=== PATIENT | female | born 1970 | race Caucasian/White ===

== ENCOUNTER → 2019-12-10 13:34 | Outpatient (CLI) | payer OTHER, SELFPAY | PROVIDERS: PCP Internal Medicine Adolescent Medicine; Visit Provider Internal Medicine Adolescent Medicine | DX: Z03.818 Encounter for observation for suspected exposure to other biological agents ruled out (principal); R05 Cough | CPT/HCPCS: U0003 ==

== ENCOUNTER → 2019-12-15 10:04 | Outpatient (CLI) | payer OTHER, SELFPAY ==
[2019-12-16 07:35] LABS: Covid-19 Nasal PCR Sendout Lex NOT DETECTED
== END ==
PROVIDERS: Visit Provider Internal Medicine Adolescent Medicine
DX: Z03.818 Encounter for observation for suspected exposure to other biological agents ruled out (principal)
CPT/HCPCS: U0004

== ENCOUNTER → 2020-04-12 10:11 | Outpatient (CLI) | payer OTHER, SELFPAY ==
--- NOTE | 2020-04-12 10:23 | XR_ITS ---
PROCEDURE: XR CHEST PORTABLE CLINICAL HISTORY: COVID OUTPATIENT COMPARISON: CT AGCHEST CT angio chest from 03/12/2018 CR CXR2V XR chest 2V from 03/12/2018 FINDINGS: Mild cardiomegaly. No evidence of failure. The lungs are clear without infiltrates, suspicious nodules, or pleural effusions. No acute bony abnormalities. IMPRESSION: Mild cardiomegaly otherwise negative Dictated by: Haris Berman MD 04/12/2020 11:32 Haris Berman MD in [place] 04/12/2020 11:32
== END ==
PROVIDERS: PCP Internal Medicine Adolescent Medicine; Referring Provider Internal Medicine Adolescent Medicine; Visit Provider Internal Medicine Adolescent Medicine
DX: Z20.822 Contact with and (suspected) exposure to COVID-19 (principal); R06.02 Shortness of breath
CPT/HCPCS: 71045; U0003

== ENCOUNTER 2022-02-28 08:19 | Outpatient (CLI) | payer OTHER, SELFPAY ==
[2022-02-28 08:23] VITALS: BP 138/83; PULSE 84; RESP 18; TEMP 36.2; O2SAT 100; BMI 38.0
[2022-02-28 08:44] LABS: Chloride 104 mmol/L (98-107); Potassium 3.8 mmoL/L (3.5-5.1); Sodium 137 mmol/L (136-145)
[2022-02-28 08:46] LABS: Blood Urea Nitrogen 13 mg/dl (7-17); Creatinine Clearance Estimated 125 mL/min (50-200); Estimated Glomerular Filt Rate 75 ml/min (>60); GFR (African American) 91 ML/MIN (>60)
[2022-02-28 08:47] LABS: Anion Gap 15.8 mEq/L (5-15); Calcium 9.6 mg/dl (8.4-10.2); Carbon Dioxide 21 mmol/L (22.0-30.0); Glucose 123 mg/dl (74-100); Magnesium 1.6 mg/dl (1.6-2.3)
[2022-02-28 08:48] LABS: Basophils # 0.1 K/mm3 (0-0.2); Basophils % 1.2 % (0.1-2.0); Eosinophils # 0.2 K/mm3 (0.0-0.4); Eosinophils % 3.3 % (0.1-12.0); Hematocrit 39.3 % (37.0-47.0); Hemoglobin 13.1 g/dL (12.2-16.2); Lymphocytes % 29.5 % (10-50); Mean Corpuscular HGB Conc 33.2 g/dL (31.8-35.4); Mean Corpuscular Volume 90.4 fl (81-99); Mean Platelet Volume 7.7 fl (7.4-10.4); Monocytes # 0.3 K/mm3 (0.1-1.0); Monocytes % 4.4 % (1.7-9.3); Neutrophils # 4.1 K/mm3 (1.8-7.8); Neutrophils % 61.5 % (37.0-80.0); Platelet Count 302 K/mm3 (142-424); Red Blood Count 4.35 M/mm3 (4.20-5.40); Red Cell Distribution Width 13.8 % (11.5-17.5); White Blood Count 6.7 K/mm3 (4.8-10.8)
[2022-02-28 10:05] VITALS: BP 149/74; PULSE 82; RESP 18; O2SAT 99
== END 2022-02-28 10:05 | disposition home or self-care (01) ==
LOC: INF 08:20
PROVIDERS: PCP Family Medicine; Visit Provider Internal Medicine Adolescent Medicine
DX: E86.0 Dehydration (principal)
CPT/HCPCS: 80048; 83735; 85025; 96360; 96375

== ENCOUNTER 2024-04-08 15:41 | Outpatient (CLI) | payer OTHER, SELFPAY ==
--- NOTE | 2024-04-08 15:45 | XR_ITS ---
FINAL REPORT CLINICAL HISTORY: Foot Pain COMPARISON: None FINDINGS: LEFT FOOT Three views demonstrate no acute fracture or dislocation. There is mild lateral subluxation of the first proximal phalange relative to the distal first metatarsal. There is a moderate hallux valgus deformity. No acute soft tissue abnormality is seen. IMPRESSION: Degenerative changes without acute bony abnormality. Reviewed, Interpreted and Dictated by Geoffrey Browne MD Transcribed by Aggie Howard Authenticated and [facility][1]
--- NOTE | 2024-04-08 15:45 | XR_ITS ---
FINAL REPORT CLINICAL HISTORY: Foot Pain COMPARISON: None FINDINGS: RIGHT FOOT Three views demonstrate no acute fracture or dislocation. There is moderately advanced joint space narrowing at the first metatarsophalangeal joint. There is mild subchondral sclerosis. Osteophyte formation is noted. There is a small plantar spur. No acute soft tissue abnormality is seen. IMPRESSION: Degenerative changes without acute bony abnormality. Reviewed, Interpreted and Dictated by Geoffrey Browne MD Transcribed by Aggie Howard Authenticated and [facility]
== END 2024-04-08 23:59 | disposition home or self-care (01) ==
LOC: RAD 15:43
PROVIDERS: PCP Family Medicine; Visit Provider Podiatrist
DX: M79.671 Pain in right foot (principal); M79.672 Pain in left foot
CPT/HCPCS: 73630

== ENCOUNTER 2024-04-20 12:51 | Outpatient (CLI) | payer OTHER, SELFPAY ==
--- NOTE | 2024-04-20 12:54 | US_ITS ---
FINAL REPORT CLINICAL HISTORY: skin changes, decreased sensation FINDINGS: BILATERAL ANKLE BRACHIAL INDICES Pressure indices are as follows are: RIGHT LOWER EXTREMITY Ankle brachial pressure index: 1.0 Toe brachial pressure index: 0.56 COMMENTS: Normal LEFT LOWER EXTREMITY Ankle brachial pressure index: 1.0 Toe brachial pressure index: 0.62 COMMENTS: Normal IMPRESSION: No evidence of significant obstructive peripheral vascular disease of the lower extremities. Reviewed, Interpreted and Dictated by Leila Christianson MD Transcribed by Mery Gonzalez Authenticated and [facility]
== END 2024-04-20 23:59 | disposition home or self-care (01) ==
LOC: RT 12:52
PROVIDERS: PCP Family Medicine; Visit Provider Podiatrist
DX: E11.621 Type 2 diabetes mellitus with foot ulcer (principal); L97.529 Non-pressure chronic ulcer of other part of left foot with unspecified severity; M19.071 Primary osteoarthritis, right ankle and foot; M19.072 Primary osteoarthritis, left ankle and foot; B95.61 Methicillin susceptible Staphylococcus aureus infection as the cause of diseases classified elsewhere
CPT/HCPCS: 87070; 87077; 87186; 87205; 93923

== ENCOUNTER 2024-04-28 16:23 | Outpatient (CLI) | payer OTHER, SELFPAY ==
--- NOTE | 2024-04-28 16:46 | XR_ITS ---
PROCEDURE INFORMATION: Exam: XR Left Foot Complete; Alignment Exam date and time: 04/28/2024 4:46 PM Age: 53 years old Clinical indication: Pain; Foot; Left; Additional info: Foot pain TECHNIQUE: Imaging protocol: Radiologic exam of the left foot. Views: 3 or more views. COMPARISON: CR XR FOOT WT BEARING LT 3V 04/08/2024 3:50 PM FINDINGS: Bones/joints: Hallux valgus and bunion and mild degenerative changes of the 1st MTP joint redemonstrated. Small heel spurs. Pes planus again noted. Soft tissues: Normal. IMPRESSION: 1. Stable left foot with chronic changes. 2. No acute abnormalities.
[2024-04-28 17:21] LABS: Basophils # 0.1 K/mm3 (0-0.2); Basophils % 0.7 % (0.1-2.0); Eosinophils # 0.1 K/mm3 (0.0-0.4); Eosinophils % 1.9 % (0.1-12.0); Hemoglobin 12.2 g/dL (12.2-16.2); Lymphocytes # 1.8 K/mm3 (0.7-4.5); Lymphocytes % 25.3 % (10-50); Mean Corpuscular HGB Conc 32.1 g/dL (31.8-35.4); Mean Corpuscular Hemoglobin 30.4 pg (27.0-31.2); Mean Corpuscular Volume 94.8 fl (81-99); Mean Platelet Volume 9.8 fl (7.4-10.4); Monocytes # 0.6 K/mm3 (0.1-1.0); Monocytes % 8.8 % (1.7-9.3); Neutrophils # 4.6 K/mm3 (1.8-7.8); Neutrophils % 62.9 % (37.0-80.0); Platelet Count 239 K/mm3 (142-424); Red Blood Count 4.01 M/mm3 (4.20-5.40); Red Cell Distribution Width 14.2 % (11.5-17.5); White Blood Count 7.3 K/mm3 (4.8-10.8)
[2024-04-28 17:56] LABS: Alanine Aminotransferase 31 U/L (12-78); Albumin Level 4.4 g/dl (3.5-5.0); Albumin/Globulin Ratio 1.9 (1.1-1.8); Alkaline Phosphatase 99 U/L (38-126); Anion Gap 8.1 mEq/L (5-15); Aspartate Amino Transferase 48 U/L (14-36); Bilirubin,Total 0.4 mg/dl (0.2-1.3); Blood Urea Nitrogen 14 mg/dl (7-17); Calcium 9.6 mg/dl (8.4-10.2); Carbon Dioxide 29 mmol/L (22.0-30.0); Chloride 105 mmol/L (98-107); Estimated Glomerular Filt Rate 104 ml/min (>60); GFR (African American) 126 ML/MIN (>60); Globulin 2.3 g/dL (1.3-3.2); Glucose 97 mg/dl (74-100); Potassium 4.1 mmoL/L (3.5-5.1); Sodium 138 mmol/L (136-145); Total Protein,Serum 6.7 g/dl (6.3-8.2)
[2024-04-28 18:00] LABS: C-Reactive Protein 8.7 mg/L (0-4)
[2024-04-28 18:09] LABS: Hemoglobin A1C 5.9 % (4.0-6.0)
[2024-04-28 18:44] LABS: Erythrocyte Sedimentation Rate 54 mm/hr (0-30)
== END 2024-04-28 23:59 | disposition home or self-care (01) ==
LOC: LAB 16:24
PROVIDERS: PCP Family Medicine; Visit Provider Podiatrist
DX: M79.672 Pain in left foot (principal); L03.032 Cellulitis of left toe; E11.621 Type 2 diabetes mellitus with foot ulcer; L97.529 Non-pressure chronic ulcer of other part of left foot with unspecified severity
CPT/HCPCS: 36415; 73630; 80053; 83036; 85025; 85651; 86140

== ENCOUNTER 2024-05-08 10:08 | Outpatient (CLI) | payer OTHER, SELFPAY ==
--- NOTE | 2024-05-08 10:12 | CT_ITS ---
FINAL REPORT TECHNIQUE: Thin section axial CT images with coronal and sagittal reformats were performed. This study was performed with techniques to keep radiation doses as low as reasonably achievable (ALARA). Individualized dose reduction techniques using automated exposure control or adjustment of mA and/or kV according to the patient''s size were employed. CLINICAL HISTORY: Access for 2nd toe Osteomyelitis FINDINGS: There is no evidence of bone destruction or periosteal reaction to indicate osteomyelitis. There is no gas in the soft tissues. There is a fluid collection along the plantar surface of the second metatarsal head measuring 10 mm, small abscess is not excluded. There is a fluid collection along the plantar posterior calcaneus measuring 31 x 15 x 20 mm. This fluid collection is encapsulated which could be related to abscess or hematoma. No fracture is identified. There is moderate hallux valgus deformity. IMPRESSION: No obvious osteomyelitis although MR would be a more sensitive study if patient is a candidate for such. Two fluid collections in the plantar subcutaneous tissues, larger posteriorly which could represent abscesses or hematoma. Reviewed, Interpreted and Dictated by Rex rAvizu MD Transcribed by Anjana Dozier Authenticated and [facility]
--- NOTE | 2024-05-08 10:12 | CT_ITS ---
FINAL REPORT CLINICAL HISTORY: bnl TBI COMPARISON: None FINDINGS: CT ABDOMEN, CT PELVIS, CTA ABDOMEN, CTA PELVIS AND CTA LOWER EXTREMITY RUNOFF COMPARISON: TECHNIQUE: Thin section axial CT with IV contrast supplemented with 3D MIP reconstruction under CT Angiogram protocol This study was performed with techniques to keep radiation doses as low as reasonably achievable, (ALARA). Individualized dose reduction techniques using automated exposure control or adjustment of mA and/or kV according to the patient''s size were employed. FINDINGS: CT ANGIOGRAM ABDOMEN AND PELVIS: Abdominal aorta shows no significant stenosis, aneurysm or dissection. Central mesenteric and renal arteries are widely patent. Iliac vessels show no significant stenosis, dissection or aneurysm. CTA RIGHT LOWER EXTREMITY: The femoral and popliteal vessels showed no significant stenosis or occlusion. There is three-vessel runoff of the calf. CTA LEFT LOWER EXTREMITY: The femoral and popliteal vessels show no significant stenosis or occlusion. There is two-vessel runoff of the calf. The anterior tibial artery is occluded proximally, while the peroneal and posterior tibial arteries are patent. Abdomen: There is a nonobstructing right renal stone measuring 6 mm in diameter. Solid abdominal organs are otherwise grossly unremarkable. No bowel obstruction is seen. There is no free fluid or free air. Pelvis: Pelvic bowel loops are unremarkable. No mass or fluid collection is seen. The uterus and ovaries are normal in appearance. The appendix is not visualized. IMPRESSION: Mild infrapopliteal peripheral vascular disease in the left lower extremity, with proximal occlusion of the anterior tibial artery. Unremarkable right lower extremity without evidence of significant stenosis or obstruction. No evidence of aortoiliac inflow disease. This study was performed using automated techniques to achieve radiation exposure as low as reasonably achievable Reviewed, Interpreted and Dictated by Rex Arvizu MD Transcribed by Daiana Ballesteros Authenticated and [facility]
[2024-05-08] MEDS: 0.9 % SODIUM CHLORIDE 50 ML VIAL 100 ML IV (10:43)
[2024-05-08] MEDS: IOPAMIDOL-370 (76%);100ML BOTTLE 120 ML IV (10:44)
[2024-05-08] MEDS: SODIUM CHLORIDE 0.9% 10ML SYR (RAD ONLY) 10 ML IV (10:44)
== END 2024-05-08 23:59 | disposition home or self-care (01) ==
LOC: RAD 10:09
PROVIDERS: PCP Family Medicine; Visit Provider Podiatrist
DX: E11.621 Type 2 diabetes mellitus with foot ulcer (principal); L97.529 Non-pressure chronic ulcer of other part of left foot with unspecified severity; L03.032 Cellulitis of left toe; E11.51 Type 2 diabetes mellitus with diabetic peripheral angiopathy without gangrene; I10 Essential (primary) hypertension
CPT/HCPCS: 73700; 75635; Q9967

== ENCOUNTER 2024-05-25 08:29 | Day surgery (SDC) | payer OTHER, SELFPAY ==
[2024-05-25] VITALS (12 sets, daily range): BP systolic 87–169; BP diastolic 47–107; PULSE 65–80; RESP 10–20; O2SAT 93–100; BMI 37.5
--- NOTE | 2024-05-25 07:15 | IR_ITS ---
APPROVED REPORT Patient Location: Outpatient PROCEDURES Catheter placement in the left external iliac artery Left external iliac artery antegrade angiogram with unilateral runoff to the left foot Catheter placed in the distal abdominal aorta Distal abdominal aortogram INDICATION Gilpin claudication class IV-V, Poorly healing lower extremity ulcer Informed consent was obtained prior to the procedure. COMPLICATIONS NONE Estimated Blood Loss: LESS THAN 10 ML TECHNIQUE 1% lidocaine used to anesthetize the right anterior aspect of the right wrist. The right radial artery was accessed via the central technique and an arterial cocktail using 5000U heparin, 2.5 mg verapamil, 1mg lidocaine and 800mcg nitroglycerin into the right radial sheath intra-arterially. A PV multi curve catheter was then placed into the left common iliac artery via the right radial sheath and iliofemoral angiography was performed with unilateral runoff to the foot. Excellent angiographic results were obtained. At the end of the procedure the apparatus was removed the sheath was removed good hemostasis was achieved using TR banding patient was transferred to the postop holding area in stable condition. ANGIOGRAPHIC RESULTS Left common internal and external arteries widely patent Left common femoral artery is normal Left profunda femoris artery and left superficial femoral arteries are widely patent The anterior posterior tibialis artery are widely patent in the proximal segment as is the peroneal artery. There is excellent two-vessel runoff from the posterior tibialis artery and peroneal artery into the left foot with slow flow down the anterior tibialis artery IMPRESSION Essentially normal three-vessel runoff below the knee as described above with no evidence of macrovascular atherosclerotic disease PLAN 1. Medical management 2. Evaluation for venous insufficiency and/or other etiologies for the ulcer Electronically signed by : Pranay Renee MD 05/25/2024 12:39:45
[2024-05-25 08:50] LABS: Basophils # 0.1 K/mm3 (0-0.2); Eosinophils # 0.2 K/mm3 (0.0-0.4); Eosinophils % 2.8 % (0.1-12.0); Hematocrit 43.7 % (37.0-47.0); Lymphocytes # 2.6 K/mm3 (0.7-4.5); Lymphocytes % 43.8 % (10-50); Mean Corpuscular Hemoglobin 30.4 pg (27.0-31.2); Mean Platelet Volume 9.8 fl (7.4-10.4); Monocytes # 0.6 K/mm3 (0.1-1.0); Monocytes % 9.3 % (1.7-9.3); Neutrophils # 2.6 K/mm3 (1.8-7.8); Neutrophils % 42.9 % (37.0-80.0); Platelet Count 290 K/mm3 (142-424); Red Cell Distribution Width 13.4 % (11.5-17.5)
[2024-05-25 08:55] LABS: Chloride 103 mmol/L (98-107); Potassium 3.7 mmoL/L (3.5-5.1); Sodium 137 mmol/L (136-145)
[2024-05-25 08:58] LABS: Anion Gap 9.7 mEq/L (5-15); Blood Urea Nitrogen 12 mg/dl (7-17); Carbon Dioxide 28 mmol/L (22.0-30.0); Creatinine Clearance Estimated 138 mL/min (50-200); Estimated Glomerular Filt Rate 87 ml/min (>60); GFR (African American) 105 ML/MIN (>60)
[2024-05-25 08:59] LABS: Calcium 9.8 mg/dl (8.4-10.2); Glucose 136 mg/dl (74-100)
[2024-05-25] MEDS: diphenhydrAMINE 50MG/ML VIAL 50 MG IV (10:52)
[2024-05-25] MEDS: HEPARIN 1,000 UNITS/500ML NS (CATH LAB) 3000 UNIT IV (10:52)
[2024-05-25] MEDS: 0.9 % SODIUM CHLORIDE 500 ML 25 ML IV (10:55)
[2024-05-25] MEDS: LIDOCAINE 1% 10ML MDV 20 ML IJ (10:57)
[2024-05-25] MEDS: MIDAZOLAM HCL 1MG/ML 5ML VIAL 1 MG IV (10:58)
[2024-05-25] MEDS: FENTANYL 100MCG/2ML VIAL 50 MCG IV (10:58)
[2024-05-25] MEDS: NITROGLYCERIN 800MCG/8ML SYR (CATH LAB) 800 MCG IA (10:58)
[2024-05-25] MEDS: VERAPAMIL 2.5MG/ML 2ML VIAL 2.5 MG IV (10:58)
[2024-05-25] MEDS: HEPARIN 1,000 UNITS/ML 10ML VIAL (CATH LAB) 10000 UNIT IV (10:59)
--- NOTE | 2024-05-25 12:04 | SUR.PHASEII ---
PATIENT TAKEN TO ICU FOR RECOVERY, ROOM 266
[2024-05-25] MEDS: IOHEXOL-240 100ML BOTTLE 58 ML IV (15:06)
== END 2024-05-25 15:02 | disposition home or self-care (01) ==
LOC: CATHLAB 08:29
PROVIDERS: PCP Family Medicine; Visit Provider Internal Medicine
DX: E13.51 Other specified diabetes mellitus with diabetic peripheral angiopathy without gangrene (principal); E13.621 Other specified diabetes mellitus with foot ulcer; E66.9 Obesity, unspecified; L97.529 Non-pressure chronic ulcer of other part of left foot with unspecified severity; M06.9 Rheumatoid arthritis, unspecified; Z79.69 Long term (current) use of other immunomodulators and immunosuppressants; Z79.82 Long term (current) use of aspirin; Z79.85 Long-term (current) use of injectable non-insulin antidiabetic drugs; Z79.84 Long term (current) use of oral hypoglycemic drugs; Z68.37 Body mass index [BMI] 37.0-37.9, adult; Z91.040 Latex allergy status; Z83.3 Family history of diabetes mellitus; Z83.49 Family history of other endocrine, nutritional and metabolic diseases; Z82.49 Family history of ischemic heart disease and other diseases of the circulatory system
CPT/HCPCS: 36245; 36247; 36248; 75710; 80048; 85025; 99152; C1725; C1769; J1200; J1644; J3010; Q9966

== ENCOUNTER 2024-06-22 11:00 | Outpatient (RCR) | payer OTHER, SELFPAY ==
--- NOTE | 2024-06-08 16:54 | HMH.PTOPWND ---
Rehab Outpt Wound Evaluation Rehab OP Wound Evaluation Start: 06/08/24 10:50 Freq: Status: Active Protocol: Document 06/08/24 16:42 MARSHA (Rec: 06/08/24 16:53 PHORKEITH [id number]) E-signed By Lucas Snow, PT Subjective/History History History This is the initial PT wound care evaluation for Bessie Duffy, 53 yowf who presents with L foot medial 2nd toe DFU x ~ 2- 3 mos. She reports, I think I got a blister from my shoe rubbing and then it turned into a sore. She reports no c /o pain in the foot at this time. 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 She had MARTINA performed which led to vascular intervention, but no flow abnormalities were noted. She reports she was prescribed baby aspirin after this procedure. She reports PMH of RA and takes prescription medication to prevent flare-ups. Subjective Subjective Pt reports no pain, 0/10. No TTP noted. No srikanth-wound erythema noted. Wound Eval Wound Left Medial Toe - 2nd Digit Wound Type Diabetic Foot Ulcer Is This a Chronic Wound Yes Wound Length (cm) 0.6 Wound Width (cm) 0.6 Wound Depth (cm) 0.1 Wound Bed Appearance Exira Wound Margins Description Well Defined Surrounding Tissue Appearance Exira Drainage Description Serosanguineous Drainage Amount Scant Wound Topical Solution/Irrigant Saline Irrigant Primary Dressing Bandaid Comment therahoney gel Wound Debridement Method Sharps,Gauze,Mechanical Wound Debridement Amount of Tissue Minimal Removed Dressing Change Patient Tolerance Tolerated Well Suarez-Hart Wound Assessment Tool Assessment Wound size 1=Length x Width <4 sq cm Wound depth 2=Partial thickness skin loss involving epidermis &/or dermis Wound edges 2=Distinct, outline clearly visible, attached, even with wound base Wound undermining 1=None present Necrotic tissue type 1=Non visible Necrotic tissue amount 1=None visible Exudate type 3=Serosanguineous: thin, watery, pale red/pink Exudate amount 2=Scant, wound moist but no observable exudate Skin color surrounding wound 1=Exira or normal for ethnic group Peripheral tissue edema 1=No swelling or edema Peripheral tissue induration 1=None present Granulation tissue 2=Bright, beefy red;75% to 100 % of wound filled &/or tissue overgrowth Epithelialization 5= < 25% wound covered Wound assessment total score 23 Wound Problems/Impairments Impairments Problems/Impairmments Wound Care Needs,Impaired Self Care/Self Management Prognosis Rehab Potential Good Comment skilled therapy is indicated to reduce overall wound surface area and aid pt healing in order to return pt to PLOF. Clinical Impression Consistent with Diagnosis Yes Short Term Goals Number of Weeks 4 Decrease Wound Area Yes: by 25% Longterm Goals Number of Weeks 8 Decrease Wound Area Yes: by 75% Outpatient Therapy Plan of Care Treatment Plan May Include Therapeutic Exercise Including Home Yes Exercise Program Manual Therapy Techniques Yes Neuromuscular Re-education Yes Therapeutic Activities to Return to Yes Previous Functional/Work Level ADL/Self Care Education Yes Orthotics/Bracing/Splinting Yes Wound Care Yes Eval/Re-Eval Yes Frequency Times per week 1 Duration Number of Weeks 8 Addendums This patient is a candidate for social No or vocational rehab? Patient/Guardian verbally acknowledges Yes understanding of treatment program and consents to further treatment? Patient/Guardian verbally acknowledges Yes understanding of diagnosis, prognosis and goals for treatment? Eval Complexity PT Charges 91477 - High Complexity PHYSICIAN CERTIFICATION: I certify the specified therapy services for Bessie Duffy are required, authorized, and reviewed every 30 days.
== END 2024-06-22 23:59 | disposition home or self-care (01) ==
LOC: PT 11:00
PROVIDERS: PCP Family Medicine; Visit Provider Nurse Practitioner
DX: E11.621 Type 2 diabetes mellitus with foot ulcer (principal); L97.529 Non-pressure chronic ulcer of other part of left foot with unspecified severity
CPT/HCPCS: 97163; 97597

== ENCOUNTER 2024-06-30 09:21 | Outpatient (CLI) | payer OTHER, SELFPAY ==
--- NOTE | 2024-06-30 09:32 | XR_ITS ---
FINAL REPORT CLINICAL HISTORY: Diabetic Foot Ulver of Left 2nd toe FINDINGS: LEFT FOOT Three views of the left foot demonstrate no acute fracture or dislocation. The visualized joint spaces are normally aligned. There is soft tissue edema of the second digit and ulceration. There is no evidence of bony erosion. Hammertoe deformity is noted of the second digit. IMPRESSION: Soft tissue ulceration and edema of the second digit without evidence of bony erosion. Reviewed, Interpreted and Dictated by Geoffrey Browne MD Transcribed by Elvira Paula Authenticated and [facility]
[2024-06-30 09:34] LABS: Basophils # 0.1 K/mm3 (0-0.2); Basophils % 0.9 % (0.1-2.0); Eosinophils # 0.2 Kmm3 (0.0-0.4); Eosinophils % 2.9 % (0.1-12.0); Hematocrit 38.9 % (37.0-47.0); Hemoglobin 12.4 g/dL (12.2-16.2); Lymphocytes # 1.9 K/mm3 (0.7-4.5); Lymphocytes % 31.6 % (10-50); Mean Corpuscular HGB Conc 31.9 g/dL (31.8-35.4); Mean Platelet Volume 9.7 fl (7.4-10.4); Monocytes # 0.7 K/mm3 (0.1-1.0); Monocytes % 11.8 % (1.7-9.3); Neutrophils # 3.1 K/mm3 (1.8-7.8); Neutrophils % 52.6 % (37.0-80.0); Nucleated Red Blood Cells # 0 10^3/uL; Nucleated Red Blood Cells % 0 %; Platelet Count 232 K/mm3 (142-424); Red Blood Count 4.14 M/mm3 (4.20-5.40); Red Cell Distribution Width 13.2 % (11.5-17.5); Red Cell Distribution Width-SD 45.3 fL; White Blood Count 5.9 K/mm3 (4.8-10.8)
[2024-06-30 09:57] LABS: Erythrocyte Sedimentation Rate 18 mm/hr (0-30)
[2024-06-30 10:50] LABS: Alanine Aminotransferase 32 U/L (12-78); Albumin Level 4.2 g/dl (3.5-5.0); Albumin/Globulin Ratio 1.6 (1.1-1.8); Alkaline Phosphatase 65 U/L (38-126); Anion Gap 8.2 mEq/L (5-15); Aspartate Amino Transferase 45 U/L (14-36); Bilirubin,Total 0.4 mg/dl (0.2-1.3); Blood Urea Nitrogen 12 mg/dl (7-17); Calcium 9.9 mg/dl (8.4-10.2); Carbon Dioxide 29 mmol/L (22.0-30.0); Chloride 108 mmol/L (98-107); Estimated Glomerular Filt Rate 104 ml/min (>60); GFR (African American) 126 ML/MIN (>60); Globulin 2.7 g/dL (1.3-3.2); Glucose 108 mg/dl (74-100); Potassium 4.2 mmoL/L (3.5-5.1); Sodium 141 mmol/L (136-145); Total Protein,Serum 6.9 g/dl (6.3-8.2)
[2024-06-30 10:56] LABS: C-Reactive Protein 1.1 mg/L (0-4)
== END 2024-06-30 23:59 | disposition home or self-care (01) ==
LOC: LAB 09:22
PROVIDERS: PCP Family Medicine; Visit Provider Podiatrist
DX: E11.621 Type 2 diabetes mellitus with foot ulcer (principal); L97.529 Non-pressure chronic ulcer of other part of left foot with unspecified severity
CPT/HCPCS: 36415; 73630; 80053; 85025; 85651; 86140; 87070; 87077; 87205; 87220

== ENCOUNTER 2024-07-06 10:49 | Outpatient (CLI) | payer OTHER, SELFPAY ==
--- NOTE | 2024-07-06 11:01 | ECG_ITS ---
APPROVED REPORT Exam: Resting ECG HR:71 bpm ECG Measurements Heart Rate 71 AXES MN 161 P 24 QRSd 104 QRS 30 QT 384 T 9 QTc 407 Conclusion SINUS RHYTHM LOW QRS VOLTAGE IN PRECORDIAL LEADS [QRS DEFLECTION < 1.0 mV IN CHEST LEADS] BORDERLINE ECG UNCONFIRMED REPORT Electronically signed by : Kuldip Cronin MD 07/07/2024 11:15:11
== END 2024-07-06 23:59 | disposition home or self-care (01) ==
LOC: RT 10:50
PROVIDERS: PCP Family Medicine; Visit Provider Podiatrist
DX: E11.621 Type 2 diabetes mellitus with foot ulcer (principal); Z01.818 Encounter for other preprocedural examination; L97.529 Non-pressure chronic ulcer of other part of left foot with unspecified severity
CPT/HCPCS: 93005

== ENCOUNTER 2024-07-22 09:07 | Day surgery (SDC) | payer OTHER, SELFPAY ==
[2024-07-21 12:19] VITALS: BMI 37.0
[2024-07-22] VITALS (7 sets, daily range): BP systolic 126–150; BP diastolic 62–75; PULSE 78–91; RESP 16–18; TEMP 36.5; O2SAT 94–98
--- NOTE | 2024-07-22 09:53 | P.PNANES_ITS ---
[facility] Disclaimer: The information contained in this section may have been updated after the patient was seen, as this information can be updated by other users. Medical History PVD (peripheral vascular disease) Agitated depression Family History Father Diabetes Hypertension Grandfather Heart attack Grandmother Hypothyroid Mother Pulmonary hypertension Social History Smoking Status: Never smoker alcohol intake: never substance use type: denies use current occupational status: retired Travel in the last 8 weeks?: None [facility] Anesthesia Checklist Patient Identification Patient Identification: Arm Band and Verbal (Name & ) Structural Data Admitted From: Home Planned Operative Procedure/s: I&D of left foot Consent for Planned Operative Procedure(s) Verified: Yes Verified Documents: Surgical Consent NPO Status Verified Time NPO: 00:00 Chart Verification Results Verified: CBC and BMP Airway Assessment Mallampati Score:: Class II C-Spine Mobility Assessed: Yes TMJ Mobility Assessed: Yes Dentition: Good Dentition Neurological Assessment Level of Consciousness: Awake, Alert and Appropriate Hx Seizures: No Numbness or tingling in extremities: No Anesthesia Plan Anesthesia Risk discussed: Yes Anesthesia Plan: Verified ASA Class: III Anesthesia Type: General
[2024-07-22 10:13] LABS: POC Glucose,Bedside 111 (70-110)
[2024-07-22] MEDS: VANCOMYCIN HCL 1,000 MG in 0.9 % SODIUM CHLORIDE 250 ML 125 MG IV (10:29)
[2024-07-22] MEDS: CEFEPIME HCL 1 GM in 0.9 % SODIUM CHLORIDE 50 ML IV (11:06)
[2024-07-22] MEDS: GENTAMICIN 80 MG/2 ML VIAL (11:07)
--- NOTE | 2024-07-22 11:50 | P.OP_ITS ---
Date of procedure: 07/22/24 Pre-op Diagnosis:: Left second toe DFU Left second toe open wound with exposed bone, suspected osteomyelitis Hammertoe deformity Hallux valgus deformity RA, diabetes Post-op Diagnosis:: Same Procedure performed:: Left second toe amputation Left partial excision metatarsal, exostectomy Left open bone biopsy I&D Surgeon:: Silvia Caceres DPM PENS AND PENCILS DIPPER:: Other ([facility]) Anesthesia: regional (LLE nerve block) and LMA Estimated blood loss (mL): 15 Clinical Note:: Patient is a 53 y/o female who presents with painful left bunion and hammertoe deformity. Recent imaging reviewed. Patient unfortunately developed a diabetic foot ulcer prior to surgery. She had further workup including labs, ABIs, CT to rule out osteomyelitis which was negative. 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 She was then scheduled for a runoff which showed no blockages, no stents placed. She was cleared from cardiology to proceed with surgery. The patient has tried modification of activity/shoe gear, taping, bunion splint/strapping, inserts, ice, elevation, NSAIDs, stretching. After a long discussion with the patient in regards to the conservative versus surgical treatment for the bunion deformity, the patient has elected to proceed with surgery because they have failed conservative treatment and continue to have pain and worsening symptoms affecting daily activities. Patient has been having local wound care with weekly debridements. We had a long discussion regarding increased surgical risks with history of DFU. We discussed a modified surgery plan including bunionectomy, second hammertoe repair with an elliptical incision to excise the ulcer and remove the PIPJ, doing open bone biopsy. She understands that hammertoe implant will not be utilized since there is a question of infection due to risk of osteomyelitis and toe amputation. She understands that the second toe may be floppy after surgery if the PIPJ is resected and no fixation utilized, however the contracture deformity would be eliminated. Discussed we try to mitigate floppy toe risk by doing the soft tissue correction of possible. We discussed in detail a staged surgery to evaluate for second toe osteomyelitis including bone biopsy, resecting the PIPJ alleviating contracture with no fixation. Patient understand if the bone biopsy is negative, clean margins then can proceed with stage II which would include elective left bunionectomy, hammertoe repair with implant fixation. Discussed increased surgical risk due to small vessel disease, diabetes, rheumatoid arthritis. The patient has been instructed on the planned procedure, all risk ve rsus benefits of the procedure to include bleeding, infection, nerve and blood vessel damage, need for further surgery, implant failure, need for implant removal, delay in healing of soft tissue or bone, failure of bones to heal, non- union, mal-union, prolonged pain and recovery, prolonged swelling, CRPS/RSD, DVT/PE and anesthetic complications including . Discussed increased risk of wound healing complications and infection due to diabetes and RA history. Does not smoke. Patient understands if there is wound complications, it could lead to infection warranting oral or IV antibiotics, gangrene necessitating toe amputation. No guarantees were given. All questions fully answered. The patient verbalized understanding and agreed to proceed with surgery. Verbal and written consent obtained. *On the day of surgery and preop patient had new changes to the left second toe consistent with infection. There was exposed middle and proximal phalanx joint with drainage noted. Discussed with patient increased likelihood of osteomyelitis and being unable to do elective bunion and hammertoe surgery in the presence of infection. Patient agreed to proceed with left second toe amputation with a bone bone biopsy. I explained due to the likelihood of bone infection, would probably not want to proceed with stage II bunion/hammertoe surgery. To help prevent further deformity and contracture and prevent a new diabetic foot ulcer, discussed first metatarsal exostectomy to remove the large dorsal medial eminence to prevent skin breakdown after second toe amputation and also assess for bone infection (which would be necessary to know prior to doing any hardware in the first metatarsal). We discussed the possibility that the 1st and 3rd toes may migrate and and the bunion may rotate appearing larger. Patient gave consent to proceed to help prevent that complication. New consent obtained and witnessed. New insurance PA started due to change of procedure day of surgery. As there was acute signs of infection, drainage, cellulitis-new labs ordered (cbc, cmp, esr, crp). Change procedure was deemed medically necessary. Operative findings:: Left second toe diabetic foot ulcer in preop was now exposed full-thickness down to the level of the bone. Numerous changes to the left second toe consistent with infection. New consent obtained and new PA started due to change of procedure day of surgery. Cellulitis noted around the DFU extending to the second MTPJ. Preop DFU: 2.5 x 1.6 x 2.1 cm. There was visible head of the proximal phalanx and the base of the middle phalanx. The medial aspect of the proximal phalanx head was yellow with drainage noted. Wound culture taken. 15 blade was used to sharply excisionally debride DFU, the tissue did not bleed appeared to be 100% fibrotic with slough and deemed to be nonviable. Decision was made to proceed with toe amputation and excised the ulcer to send for tissue culture. The head of the proximal phalanx was soft and crumbly with slight malodor. Second metatarsal head appeared intact with no obvious signs of infection. First metatarsal large dorsal eminence exostosis, spur noted. Separate incision was made over the dorsal aspect of the first MTPJ. The large dorsal medial eminence was transected with saw and sent for open bone biopsy specimen to rule out osteomyelitis. Synovitis noted at the first MTPJ, sent as a specimen along with inflamed synovitic appearing joint capsule. Operative note:: On this date and time patient was deemed an appropriate surgical candidate. With informed consent signed, the patient was taken to the operating theater after anesthesia did regional nerve block. The patient was positioned supine. LMA anesthesia was induced. Tourniquet applied but not inflated. IV vancomycin, cefepime given. The left lower extremity was prepped and draped in normal sterile fashion. Left open bone biopsy, partial resection metatarsal/exostectomy: Attention was directed to the first metatarsal where a dorsal medial eminence and bone spur was noted. A linear incision was mapped out over the dorsal medial aspect of the first MTPJ full-thickness down to level of the bone. Care taken to maintain surgical hemostasis and safely retract neurovascular structures. Saw was used to transect the piece of the metatarsal which was then sent for pathology to rule out bone infection. No purulence, malodor or obvious signs of infection noted to this area. Wound was flushed with gentamicin irrigation. Lateral release performed to prevent hallux valgus contracture, partial release noted. There was synovium at the level of the MTPJ. It was removed and sent to pathology along with some inflamed joint capsule. Post capsular debridement with 15 blade and forceps, medial capsulorrhaphy performed and capsule closed with Vicryl. Skin closed with nylon. Left foot irrigation and debridement: Cellulitis is noted extending to the second MTPJ. 15 blade forceps used to sharply excisionally debride the diabetic foot ulcer full-thickness through skin, subcutaneous tissue to deep capsule overlying the head of the proximal phalanx medially. Tissue was nonviable did not bleed. Decision made to excise the ulcer in total and proceed with toe amp. Left 2nd digit amputation: A fish mouth incision was mapped out. Utilizing a 15 blade dissection was carried down sharply to the level of the bone around the middle phalanx, which was disarticulated from the proximal phalanx. There was yellow purulent drainage coming from the joint. Swab wound culture taken. The proximal phalanx head was discolored yellow, soft and crumbly so decision was made to remove the entire toe. The proximal phalanx was disarticulated from the metatarsal head. The the proximal phalanx broke in half so the more proximal aspect of the bone including the base was sent as a separate specimen. The distal and middle phalanx bone along with the toe was had a slight malodor to it and sent for bone/tissue culture. Attention was then directed back to the proximal phalanx. The head and neck was soft and easily broken, discolored with cortical erosions noted. The toe bone was sent for bone culture and the other part was sent for bone biopsy for pathology. The 2nd met head was intact with no cortical erosions, discoloration or obvious signs of osteomyelitis. Next 1L of gentamicin irrigation was used to flush the wound. The wound was reexplored and no further signs of infection noted. No sinus tracking. Bleeding controlled. No vessels ligated with electrocautery or tied as there was minimal to no blood loss. Vancomycin powder inserted prior to closure. 3-0 nylon was used to close skin in an interrupted simple suture fashion. The wounds were cleansed. Vancomycin powder applied to incision. Betadine soaked gauze, dry sterile dressing was then applied to the left foot. The patient was awoken from anesthesia and transferred to recovery with vital signs stable and neurovascular status intact. Materials: 3-0 Nylon, 1g Vanco powder Discharge/Plan: Patient is to maintain dressing clean dry and intact. Partial weight bearing to the left lower extremity in short fracture boot with walker. Completed oral antibiotics. IV Vanco, Cefepime given today. Start oral antibiotics: Doxy bucky. Obtain post op films, left foot, 3 views. Follow up in one week for dressing change. Condition: stable Disposition: same day Specimens:: Micro: Left foot wound culture Left second toe (tissue) culture Left second toe bone culture Path: Left second toe bone Left second proximal phalanx base bone Left first metatarsal bone Synovium Complications:: None
--- NOTE | 2024-07-22 12:00 | XR_ITS ---
FINAL REPORT CLINICAL HISTORY: s/p L 2nd toe amp, partial resection met COMPARISON: 06/30/2024 FINDINGS: LEFT FOOT Three views were obtained. There is no fracture or dislocation. There are postoperative changes from amputation of the second digit. Dressing artifact obscures detail. There are mild degenerative changes. IMPRESSION: Interval amputation of the second digit. Reviewed, Interpreted and Dictated by Rex Arvizu MD Transcribed by Anjana Dozier Authenticated and [facility]
[2024-07-22 12:06] LABS: POC Glucose,Bedside 126 (70-110)
[2024-07-22 12:20] LABS: Basophils # 0.1 K/mm3 (0-0.2); Basophils % 1.4 % (0.1-2.0); Eosinophils # 0.2 Kmm3 (0.0-0.4); Eosinophils % 2.9 % (0.1-12.0); Hematocrit 40.6 % (37.0-47.0); Hemoglobin 12.9 g/dL (12.2-16.2); Immature Granulocytes # 0.03 10^3uL; Immature Granulocytes % 0.5 %; Lymphocytes # 1.7 K/mm3 (0.7-4.5); Lymphocytes % 25.3 % (10-50); Mean Corpuscular HGB Conc 31.8 g/dL (31.8-35.4); Mean Corpuscular Hemoglobin 29.7 pg (27.0-31.2); Mean Corpuscular Volume 93.3 fl (81-99); Mean Platelet Volume 9.6 fl (7.4-10.4); Monocytes # 0.4 K/mm3 (0.1-1.0); Monocytes % 5.9 % (1.7-9.3); Neutrophils # 4.3 K/mm3 (1.8-7.8); Nucleated Red Blood Cells # 0 10^3/uL; Nucleated Red Blood Cells % 0 %; Platelet Count 237 K/mm3 (142-424); Red Blood Count 4.35 M/mm3 (4.20-5.40); Red Cell Distribution Width 13.6 % (11.5-17.5); Red Cell Distribution Width-SD 46.6 fL; White Blood Count 6.6 K/mm3 (4.8-10.8)
[2024-07-22 12:28] LABS: Chloride 108 mmol/L (98-107)
[2024-07-22 12:29] LABS: Albumin Level 4.3 g/dl (3.5-5.0); Potassium 4.1 mmoL/L (3.5-5.1); Sodium 139 mmol/L (136-145)
[2024-07-22 12:31] LABS: Alanine Aminotransferase 24 U/L (12-78); Anion Gap 9.1 mEq/L (5-15); Aspartate Amino Transferase 38 U/L (14-36); Blood Urea Nitrogen 15 mg/dl (7-17); Carbon Dioxide 26 mmol/L (22.0-30.0); Creatinine Clearance Estimated 157 mL/min (50-200); Estimated Glomerular Filt Rate 103 ml/min (>60); GFR (African American) 125 ML/MIN (>60)
[2024-07-22 12:32] LABS: Albumin/Globulin Ratio 1.5 (1.1-1.8); Alkaline Phosphatase 86 U/L (38-126); Bilirubin,Total 0.4 mg/dl (0.2-1.3); Calcium 9.5 mg/dl (8.4-10.2); Globulin 2.9 g/dL (1.3-3.2); Glucose 155 mg/dl (74-100); Total Protein,Serum 7.2 g/dl (6.3-8.2)
[2024-07-22 12:37] LABS: C-Reactive Protein 12.8 mg/L (0-4)
[2024-07-22 12:56] LABS: Erythrocyte Sedimentation Rate 48 mm/hr (0-30)
--- NOTE | 2024-07-23 08:21 | P.PNANES_ITS ---
[facility] Anesthesia Record Part II Anesthesia Record Part II Discharge Time: 12:17 Destination: [facility] PACU nurse assessment reviewed?: Yes Patient Condition:: Good Anesthesia Complications:: None Swallowing reflex intact?: Yes Airway Patency: Patent Cyanosis?: No Blood Pressure: 139/71 SaO2: 96 Respiratory Rate: 16 Pulse Rate: 88 Temperature: 97.8 F Mental Status: Alert & Oriented Pain level:: 0 Nausea and/or vomitting:: None Intake, IV Amount: 1,500 Hydration: Adequate
[2024-07-23 08:22] VITALS: BP 139/71; PULSE 88; RESP 16; TEMP 36.6; O2SAT 96
== END 2024-07-22 12:47 | disposition home or self-care (01) ==
PROVIDERS: PCP Family Medicine; Visit Provider Podiatrist
PROC: (CPT 28122; principal; 2024-07-22 11:00)
DX: E11.621 Type 2 diabetes mellitus with foot ulcer (principal); M20.42 Other hammer toe(s) (acquired), left foot; M20.12 Hallux valgus (acquired), left foot; M06.9 Rheumatoid arthritis, unspecified; M86.172 Other acute osteomyelitis, left ankle and foot; E11.69 Type 2 diabetes mellitus with other specified complication; L97.526 Non-pressure chronic ulcer of other part of left foot with bone involvement without evidence of necrosis; L03.032 Cellulitis of left toe; M21.42 Flat foot [pes planus] (acquired), left foot; M20.5X1 Other deformities of toe(s) (acquired), right foot; M19.072 Primary osteoarthritis, left ankle and foot; M19.071 Primary osteoarthritis, right ankle and foot; E66.812 Obesity, class 2; E11.51 Type 2 diabetes mellitus with diabetic peripheral angiopathy without gangrene; I70.245 Atherosclerosis of native arteries of left leg with ulceration of other part of foot; F32.A Depression, unspecified; Z91.040 Latex allergy status; Z79.82 Long term (current) use of aspirin; Z79.899 Other long term (current) drug therapy; Z79.84 Long term (current) use of oral hypoglycemic drugs; Z83.3 Family history of diabetes mellitus; Z68.37 Body mass index [BMI] 37.0-37.9, adult
CPT/HCPCS: 28122; 28295; 28820; 36415; 73630; 80053; 82962; 85025; 85651; 86140; 87070; 87077; 87186; 87205; 88304; 88305; 88311; J0692; J1100; J1580; J2003; J2250; J2405; J2704; J3010; J3370; J7050

== ENCOUNTER 2024-08-06 12:14 | Outpatient (CLI) | payer OTHER, SELFPAY ==
[2024-08-06 12:48] LABS: Basophils # 0.1 K/mm3 (0-0.2); Basophils % 0.8 % (0.1-2.0); Eosinophils # 0.5 Kmm3 (0.0-0.4); Eosinophils % 6.4 % (0.1-12.0); Hematocrit 38.9 % (37.0-47.0); Hemoglobin 12.3 g/dL (12.2-16.2); Immature Granulocytes # 0.01 10^3uL; Immature Granulocytes % 0.1 %; Lymphocytes # 1.9 K/mm3 (0.7-4.5); Lymphocytes % 25.9 % (10-50); Mean Corpuscular HGB Conc 31.6 g/dL (31.8-35.4); Mean Corpuscular Hemoglobin 29.1 pg (27.0-31.2); Mean Corpuscular Volume 92.2 fl (81-99); Mean Platelet Volume 9.8 fl (7.4-10.4); Monocytes # 0.7 K/mm3 (0.1-1.0); Monocytes % 9.5 % (1.7-9.3); Neutrophils # 4.2 K/mm3 (1.8-7.8); Neutrophils % 57.3 % (37.0-80.0); Nucleated Red Blood Cells # 0 10^3/uL; Nucleated Red Blood Cells % 0 %; Platelet Count 207 K/mm3 (142-424); Red Blood Count 4.22 M/mm3 (4.20-5.40); Red Cell Distribution Width 14.1 % (11.5-17.5); Red Cell Distribution Width-SD 47.8 fL; White Blood Count 7.3 K/mm3 (4.8-10.8)
[2024-08-06 13:29] LABS: Erythrocyte Sedimentation Rate 31 mm/hr (0-30)
[2024-08-06 13:37] LABS: Chloride 105 mmol/L (98-107)
[2024-08-06 13:38] LABS: Albumin Level 4.4 g/dl (3.5-5.0); Potassium 4.4 mmoL/L (3.5-5.1); Sodium 140 mmol/L (136-145)
[2024-08-06 13:41] LABS: Alanine Aminotransferase 21 U/L (12-78); Albumin/Globulin Ratio 1.8 (1.1-1.8); Alkaline Phosphatase 68 U/L (38-126); Anion Gap 8.4 mEq/L (5-15); Aspartate Amino Transferase 36 U/L (14-36); Bilirubin,Total 0.6 mg/dl (0.2-1.3); Blood Urea Nitrogen 18 mg/dl (7-17); Calcium 9.7 mg/dl (8.4-10.2); Carbon Dioxide 31 mmol/L (22.0-30.0); Estimated Glomerular Filt Rate 74 ml/min (>60); GFR (African American) 90 ML/MIN (>60); Globulin 2.4 g/dL (1.3-3.2); Glucose 100 mg/dl (74-100); Total Protein,Serum 6.8 g/dl (6.3-8.2)
[2024-08-06 13:49] LABS: C-Reactive Protein 6.1 mg/L (0-4)
== END 2024-08-06 23:59 | disposition home or self-care (01) ==
LOC: LAB 12:15
PROVIDERS: PCP Family Medicine; Visit Provider Podiatrist
DX: L03.032 Cellulitis of left toe (principal); E11.51 Type 2 diabetes mellitus with diabetic peripheral angiopathy without gangrene; M86.172 Other acute osteomyelitis, left ankle and foot; Z98.890 Other specified postprocedural states
CPT/HCPCS: 36415; 80053; 85025; 85651; 86140